=== PATIENT | male | born 1965 | race Caucasian/White ===

== ENCOUNTER 2017-02-09 14:19 | Observation (INO) | payer OTHER ==
[2017-02-09] MEDS ORDERED: ASPIRIN 81 MG CHEW PO STA (14:39)
--- NOTE | 2017-02-09 14:47 | ED ---
General Adult HPI - General Source: patient, RN notes reviewed Mode of arrival: wheelchair Limitations: no limitations <Edson Coelho - Last Filed: 02/09/17 17:06> <Ady Boland - Last Filed: 02/09/17 19:56> - General Chief complaint: Arrhythmia/Palpitations Stated complaint: CHest Pain Time Seen by Provider: 02/09/17 14:31 - History of Present Illness Initial comments: This a 51-year-old male presents emergency Department with chief complaint of chest pain. Patient states child has been swelling. Patient states that seems to wax and wane but not dissipating. Patient states he does not feel right. Patient states he also feels like his heart is pounding. Patient states that he has no known cardiac disease. Patient does not see a primary care physician a regular basis. Patient states that he does not have a known history of of hyperlipidemia, hypertension, diabetes. Patient's father had 3 MIs. Patient states he also is a heavy smoker and drinker. Patient denies any shortness of breath this time he did have some diaphoresis. Denies any headache or dizziness. Patient states he took Aleve earlier this morning he has not taken any aspirin. (Edson Coelho) - Related Data Home Medications Medication Instructions Recorded Confirmed Kirk Men Plus 1 tab PO DAILY 02/09/17 02/09/17 Allergies Allergy/AdvReac Type Severity Reaction Status Date / Time No Known Allergies Allergy Verified 02/09/17 14:43 Review of Systems ROS Other: All systems not noted in ROS Statement are negative. <Edson Coelho - Last Filed: 02/09/17 17:06> ROS Other: All systems not noted in ROS Statement are negative. <Ady Boland - Last Filed: 02/09/17 19:56> ROS Statement: Those systems with pertinent positive or pertinent negative responses have been documented in the HPI. Past Medical History Past Medical History: No Reported History History of Any Multi-Drug Resistant Organisms: None Reported Past Surgical History: Orthopedic Surgery, Tonsillectomy Past Psychological History: No Psychological Hx Reported Smoking Status: Current every day smoker Past Alcohol Use History: Daily Past Drug Use History: None Reported <Edson Coelho - Last Filed: 02/09/17 17:06> General Exam Limitations: no limitations General appearance: alert, in no apparent distress Head exam: Present: atraumatic, normocephalic, normal inspection Eye exam: Present: normal appearance, PERRL, EOMI. Absent: scleral icterus, conjunctival injection, periorbital swelling Neck exam: Present: normal inspection, full ROM. Absent: tenderness, meningismus, lymphadenopathy Respiratory exam: Present: normal lung sounds bilaterally. Absent: respiratory distress, wheezes, rales, rhonchi, stridor Cardiovascular Exam: Present: regular rate, normal rhythm, normal heart sounds. Absent: systolic murmur, diastolic murmur, rubs, gallop, clicks GI/Abdominal exam: Present: soft, normal bowel sounds. Absent: distended, tenderness, guarding, rebound, rigid <Edson Coelho - Last Filed: 02/09/17 17:06> EKG Findings - EKG Comments: EKG Findings:: EKG performed at 14:30 normal sinus rhythm with incomplete right miko block rate of 84. CT interval 140 QRS duration 116 QT/QTC 380/449 <Edson Coelho - Last Filed: 02/09/17 17:06> Medical Decision Making - Lab Data Result diagrams: 02/09/17 14:50 02/09/17 14:50 <Edson Coelho - Last Filed: 02/09/17 17:06> - Lab Data Result diagrams: 02/09/17 14:50 02/09/17 14:50 <Ady Boland - Last Filed: 02/09/17 19:56> - Medical Decision Making This is a 51-year-old came in for chest pain. He was admitted to Dr. Santana on heparin. The patient reported that he's been noticing some rectal bleeding for the last 3 days. He does have a history of hemorrhoids. I did a rectal exam at bedside and did not notice any dark or bloody stool. Guaiac card was sent down to lab. At this time I felt okay to continue with heparin. (Ady Boland) - Lab Data Lab Results 02/09/17 02/09/17 02/09/17 Range/Units 14:50 14:50 14:50 WBC 3.3 L (3.8-10.6) k/uL RBC 4.68 (4.30-5.90) m/uL Hgb 15.2 (13.0-17.5) gm/dL Hct 44.4 (39.0-53.0) % MCV 94.7 (80.0-100.0) fL MCH 32.5 (25.0-35.0) pg MCHC 34.4 (31.0-37.0) g/dL RDW 14.7 (11.5-15.5) % Plt Count 235 (150-450) k/uL Neutrophils % 63 % Lymphocytes % 23 % Monocytes % 9 % Eosinophils % 1 % Basophils % 2 % Neutrophils # 2.1 (1.3-7.7) k/uL Lymphocytes # 0.7 L (1.0-4.8) k/uL Monocytes # 0.3 (0-1.0) k/uL Eosinophils # 0.0 (0-0.7) k/uL Basophils # 0.1 (0-0.2) k/uL PT (9.0-12.0) sec INR (<1.1) APTT (22.0-30.0) sec Sodium 139 (137-145) mmol/L Potassium 4.4 (3.5-5.1) mmol/L Chloride 101 (98-107) mmol/L Carbon Dioxide 30 (22-30) mmol/L Anion Gap 8 mmol/L BUN 13 (9-20) mg/dL Creatinine 0.93 (0.66-1.25) mg/dL Est GFR (MDRD) Af Amer >60 (>60 ml/min/1.73 sqM) Est GFR (MDRD) Non-Af >60 (>60 ml/min/1.73 sqM) Glucose 129 H (74-99) mg/dL Calcium 9.5 (8.4-10.2) mg/dL Magnesium 1.8 (1.6-2.3) mg/dL Total Bilirubin 0.6 (0.2-1.3) mg/dL AST 35 (17-59) U/L ALT 30 (21-72) U/L Alkaline Phosphatase 56 (38-126) U/L Total Creatine Kinase 145 (55-170) U/L CK-MB (CK-2) 3.2 H* (0.0-2.4) ng/mL CK-MB (CK-2) Rel Index 2.2 Troponin I <0.012 (0.000-0.034) ng/mL Total Protein 7.1 (6.3-8.2) g/dL Albumin 4.4 (3.5-5.0) g/dL Lipase 259 (23-300) U/L 02/09/17 Range/Units 14:50 WBC (3.8-10.6) k/uL RBC (4.30-5.90) m/uL Hgb (13.0-17.5) gm/dL Hct (39.0-53.0) % MCV (80.0-100.0) fL MCH (25.0-35.0) pg MCHC (31.0-37.0) g/dL RDW (11.5-15.5) % Plt Count (150-450) k/uL Neutrophils % % Lymphocytes % % Monocytes % % Eosinophils % % Basophils % % Neutrophils # (1.3-7.7) k/uL Lymphocytes # (1.0-4.8) k/uL Monocytes # (0-1.0) k/uL Eosinophils # (0-0.7) k/uL Basophils # (0-0.2) k/uL PT 9.6 (9.0-12.0) sec INR 0.9 (<1.1) APTT 25.8 (22.0-30.0) sec Sodium (137-145) mmol/L Potassium (3.5-5.1) mmol/L Chloride (98-107) mmol/L Carbon Dioxide (22-30) mmol/L Anion Gap mmol/L BUN (9-20) mg/dL Creatinine (0.66-1.25) mg/dL Est GFR (MDRD) Af Amer (>60 ml/min/1.73 sqM) Est GFR (MDRD) Non-Af (>60 ml/min/1.73 sqM) Glucose (74-99) mg/dL Calcium (8.4-10.2) mg/dL Magnesium (1.6-2.3) mg/dL Total Bilirubin (0.2-1.3) mg/dL AST (17-59) U/L ALT (21-72) U/L Alkaline Phosphatase (38-126) U/L Total Creatine Kinase (55-170) U/L CK-MB (CK-2) (0.0-2.4) ng/mL CK-MB (CK-2) Rel Index Troponin I (0.000-0.034) ng/mL Total Protein (6.3-8.2) g/dL Albumin (3.5-5.0) g/dL Lipase (23-300) U/L Disposition <Edson Coelho - Last Filed: 02/09/17 17:06> <Ady Boland - Last Filed: 02/09/17 19:56> Clinical Impression: Unstable angina Disposition: ADMITTED IP TO THIS HOSP Condition: Stable
[2017-02-09 15:11] LABS: Basophils # (A) 0.1 k/uL (0-0.2); Basophils % (A) 2 %; CH 33.4; CHCM 35.4; Eosinophils % (A) 1 %; HCT 44.4 % (39.0-53.0); HDW 2.47; HGB 15.2 gm/dL (13.0-17.5); Luc # (Auto) 0.07; Luc % (Auto) 2; Lymphocytes # (A) 0.7 k/uL (1.0-4.8); Lymphocytes % (A) 23 %; MCH 32.5 pg (25.0-35.0); MCHC 34.4 g/dL (31.0-37.0); MCV 94.7 fL (80.0-100.0); Mean Platelet Volume 6.6; Monocytes # (A) 0.3 k/uL (0-1.0); Monocytes % (A) 9 %; Neutrophils # (A) 2.1 k/uL (1.3-7.7); Neutrophils % (A) 63 %; RBC 4.68 m/uL (4.30-5.90); RDW 14.7 % (11.5-15.5); WBC 3.3 k/uL (3.8-10.6)
--- NOTE | 2017-02-09 15:17 | XR ---
EXAMINATION TYPE: XR chest 2V DATE OF EXAM: 02/09/2017 3:02 PM COMPARISON: NONE HISTORY: Chest pain TECHNIQUE: Frontal and lateral views of the chest are obtained on a total of 3 images. FINDINGS: There is no focal air space opacity, pleural effusion, or pneumothorax seen. The cardiac silhouette size is small. There are prominent lung volumes which may be indicative of COPD. There are overlying cardiac leads. The osseous structures are intact, degenerative disc changes are present i n the visualized spine, there is a spinal curvature. IMPRESSION: No acute cardiopulmonary process.
[2017-02-09 15:19] LABS: Glucose 129 mg/dL (74-99); Total Protein 7.1 g/dL (6.3-8.2)
[2017-02-09 15:20] LABS: ALT 30 U/L (21-72); AST 35 U/L (17-59); Alkaline Phosphatase 56 U/L (38-126); Anion Gap 8 mmol/L; Blood Urea Nitrogen 13 mg/dL (9-20); Calcium 9.5 mg/dL (8.4-10.2); Carbon Dioxide 30 mmol/L (22-30); Chloride 101 mmol/L (98-107); INR 0.9 (<1.1); Magnesium 1.8 mg/dL (1.6-2.3); Non-African American GFR(MDRD) >60 (>60 ml/min/1.73 sqM); Partial Thromboplastin Time 25.8 sec (22.0-30.0); Potassium 4.4 mmol/L (3.5-5.1); Prothrombin Time 9.6 sec (9.0-12.0); Sodium 139 mmol/L (137-145); Total Bilirubin 0.6 mg/dL (0.2-1.3)
[2017-02-09 15:50] LABS: Creatine Kinase 145 U/L (55-170)
[2017-02-09 16:04] LABS: Troponin I <0.012 ng/mL (0.000-0.034)
[2017-02-09 16:06] LABS: Creatine Kinase MB 3.2 ng/mL (0.0-2.4)
[2017-02-09] MEDS ORDERED: NITROGLYCERIN SL TABS 0.4 MG TAB SUBLINGUAL PRN (17:07)
[2017-02-09] MEDS ORDERED: HEPARIN SODIUM,PORCINE 5,000 UNIT/ML 1 ML VIAL IV ONE (17:07)
[2017-02-09] MEDS ORDERED: HEPARIN SODIUM,PORCINE/D5W PMX 25,000 UNIT in DEXTROSE/WATER 1 500ML.BAG IV SCH (17:15)
[2017-02-09] MEDS ORDERED: HYDROmorphone 1 MG/ML 1 ML SYRINGE IVP PRN (18:37)
[2017-02-09] MEDS ORDERED: ALPRAZolam 0.25 MG TAB PO PRN (18:37)
[2017-02-09] MEDS ORDERED: HYDROcodone/APAP 5-325MG 1 EACH TAB PO PRN (18:37)
[2017-02-09] MEDS ORDERED: TEMAZEPAM 15 MG CAP PO PRN (18:37)
[2017-02-09] MEDS ORDERED: ACETAMINOPHEN TAB 500 MG TAB PO PRN (18:37)
[2017-02-09] MEDS ORDERED: NICOTINE 14MG/24HR PATCH TRANSDERM STA (18:44)
[2017-02-09 19:16] LABS: Appearance,Urine Clear (Clear); Bilirubin,Urine Negative (Negative); Glucose,Urine (UA) Negative (Negative); Ketones,Urine Negative (Negative); Leukocyte Esterase,Urine Negative (Negative); Nitrite,Urine Negative (Negative); Protein,Urine Negative (Negative); Specific Gravity,Urine 1.011 (1.001-1.035); UA Billing (MACRO vs. MICRO) CHEM; Urobilinogen,Urine <2.0 mg/dL (<2.0)
[2017-02-09 21:37] LABS: Creatine Kinase 117 U/L (55-170)
[2017-02-09 21:51] LABS: Creatine Kinase MB 2.4 ng/mL (0.0-2.4); Troponin I <0.012 ng/mL (0.000-0.034)
--- NOTE | 2017-02-09 23:46 | HP ---
DATE OF ADMISSION: 02/09/2017 CHIEF COMPLAINT: Chest pain. HISTORY OF PRESENT ILLNESS: This 51-year-old gentleman with a past medical history of no significant medical issues except orthopedic surgery and tonsillectomy, not being followed by a primary physician, is a heavy smoker. The patient presented to [facility] with complains of chest pain. The chest pain was felt in the anterior part of the chest which was radiating to the back also, according to him. It was waxing and waning. The heart was felt to be pounding also with some palpitations. Because of multiple symptomatology, the patient came to [facility] and was admitted for further evaluation and treatment. EKG showed incomplete right bundle block pattern. WBC was 3.3. CK-MB was 3.2. He was admitted for further evaluation and treatment. There is no history of any fever, rigor, or chills. No history of any headache, loss of consciousness, seizures. PAST MEDICAL HISTORY: No significant cardiovascular illness. History of orthopedic surgery and tonsillectomy. HOME MEDICATIONS: Kirk Men Plus. ALLERGIES: NONE. FAMILY HISTORY: No history of heart disease or strokes in the family. SOCIAL HISTORY: Smoking currently on an ongoing basis, one pack of cigarettes per day. No history of alcohol intake. REVIEW OF SYSTEMS: ENT: No diminishing hearing. No diminished vision. CARDIOVASCULAR: As mentioned earlier. RESPIRATORY SYSTEM: No cough, hemoptysis. GI: No nausea. : No dysuria, retention. NERVOUS SYSTEM: No numbness, weakness. ALLERGY/IMMUNOLOGY: No asthma, hayfever. MUSCULOSKELETAL: As mentioned earlier. HEMATOLOGY/ONCOLOGY: No history of anemia. ENDOCRINE: No history of diabetes, hypothyroidism. CONSTITUTIONAL: As mentioned earlier. DERMATOLOGY: Negative. RHEUMATOLOGY: Negative. PSYCHIATRY: As mentioned earlier. PHYSICAL EXAMINATION: Patient is alert and oriented x3. Pulse is 74, blood pressure 129/90, respiration 18, temperature 98.1, pulse ox 99% on 2 L. HEENT: Conjunctivae normal. Oral mucosa moist. NECK: No jugular venous distention. No carotid bruit. No lymph node enlargement. CARDIOVASCULAR SYSTEM: S1, S2 muffled. No S3. No S4. RESPIRATORY: Breath sounds diminished at the bases. No rhonchi. No crackles. ABDOMEN: Soft, nontender. No mass palpable. LEGS: No edema. No swelling. NERVOUS SYSTEM: Higher functions as mentioned earlier. Moves all 4 limbs. No focal motor or sensory deficit. LYMPHATICS: No lymph node palpable in neck, axillae or groin. SKIN: No ulcer, rash, bleeding. JOINTS: No active deforming arthropathy. LABS: WBC 3.6, hemoglobin 15.2. Glucose 129. CK-MB is 3.2. Troponins are negative. ASSESSMENT: 1. Chest pain, possible unstable angina. 2. Incomplete right bundle branch block on EKG. 3. Mild leukopenia. 4. Increased random blood sugar. 5. Continued ongoing nicotine dependence. 6. History of degenerative joint disease. 7. History of tonsillectomy. RECOMMENDATIONS AND DISCUSSION: In this 51-year-old gentleman who presented with multiple complex medical issues, we will monitor the patient closely, continue the current medication, continue with symptomatic treatment. Unstable angina protocol. Closely follow with Cardiology. Rule out myocardial infarction. Symptomatic treatment also will be provided. N.p.o. past midnight. Possible stress test. Guarded prognosis because of multiple complex medical issues. Discussed with the patient, who understands and agrees. Further recommendations to follow. I also recommend that the patient follow up with a primary physician closely in the outpatient setting. Patient understands and agrees.
[2017-02-10] MEDS ORDERED: HEPARIN SODIUM,PORCINE 5,000 UNIT/ML 1 ML VIAL IV PRN (01:25)
[2017-02-10 03:13] LABS: Anion Gap 9 mmol/L; Blood Urea Nitrogen 20 mg/dL (9-20); Calcium 8.6 mg/dL (8.4-10.2); Carbon Dioxide 25 mmol/L (22-30); Chloride 104 mmol/L (98-107); Cholesterol 151 mg/dL (<200); Glucose 86 mg/dL (74-99); HDL Cholesterol 74 mg/dL (40-60); Non-African American GFR(MDRD) >60 (>60 ml/min/1.73 sqM); Potassium 3.6 mmol/L (3.5-5.1); Sodium 138 mmol/L (137-145); Triglycerides 73 mg/dL (<150)
[2017-02-10 03:15] LABS: Creatine Kinase 102 U/L (55-170)
[2017-02-10 03:28] LABS: Creatine Kinase MB 2.1 ng/mL (0.0-2.4); Troponin I <0.012 ng/mL (0.000-0.034)
[2017-02-10 03:33] LABS: Basophils # (A) 0.1 k/uL (0-0.2); Basophils % (A) 2 %; CHCM 34.2; Eosinophils # (A) 0.1 k/uL (0-0.7); Eosinophils % (A) 3 %; HCT 40.2 % (39.0-53.0); HDW 2.45; HGB 13.5 gm/dL (13.0-17.5); Luc # (Auto) 0.09; Luc % (Auto) 2; Lymphocytes # (A) 1.6 k/uL (1.0-4.8); Lymphocytes % (A) 35 %; MCH 32.7 pg (25.0-35.0); MCHC 33.7 g/dL (31.0-37.0); MCV 97.2 fL (80.0-100.0); Monocytes # (A) 0.3 k/uL (0-1.0); Monocytes % (A) 6 %; Neutrophils # (A) 2.4 k/uL (1.3-7.7); Neutrophils % (A) 52 %; RBC 4.13 m/uL (4.30-5.90); RDW 14.5 % (11.5-15.5); WBC 4.6 k/uL (3.8-10.6); WBC (Perox) 4.07
[2017-02-10] MEDS ORDERED: PANTOPRAZOLE 40 MG TABLET PO SCH (07:30)
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
[2017-02-10] MEDS ORDERED: NICOTINE 14MG/24HR PATCH TRANSDERM SCH (09:00)
[2017-02-10] MEDS ORDERED: ASPIRIN 325 MG TAB PO SCH (09:00)
[2017-02-10] MEDS ORDERED: MULTIVITAMINS, THERA 1 EACH TAB PO SCH (12:00)
[2017-02-10 12:54] VITALS: BP 123/74; PULSE 67; RESP 18; TEMP 97.7
--- NOTE | 2017-02-10 13:51 | ECHOS ---
DATE OF SERVICE: 02/10/2017 AGE: 51Y SEX: M HT: 5'10" WT: 150 lbs. Protocol Ankit: X Others: Stress Echo Stage: 4 Dur. of Exercise: 11:00 *Heart Rate Blood Pressure *Rest: 74 Rest: 153/70 * *Max. Achieved: 150 Maximum BP: 177/77 85% PMHR: 142 100% PMHR: 167 *METS: 11.3 INDICATIONS: Chest pain. MEDICATIONS: - Baseline EKG revealed normal sinus rhythm without significant ST-T changes. Patient walked for 11 minutes on standard Ankit protocol, achieved a maximum heart rate of 150 beats per minute, well above 85% of predicted maximal. He developed fatigue and shortness of breath, but did not have any angina or arrhythmia and he had isolated PVCs that were noted to begin with, and these PVCs disappeared as he exercised and again in the recovery period, he again had very rare isolated PVCs. Patient's peak systolic blood pressure was 177/77. By EKG criteria, this is a negative stress test with excellent exercise capacity. Ventricular ectopy improved with exercise and appeared in recovery. These were all isolated premature ventricular contractions without symptoms. Baseline echo images reveal normal wall motion and wall thickening of all segments. At peak exercise, there was good augmentation of left ventricular wall motion and wall thickening of all segments suggesting that there is no evidence of stress-induced ischemia on this study. FINAL IMPRESSION: 1. Excellent exercise capacity with a negative stress by EKG criteria with improvement in premature ventricular contractions as patient exercised. 2. Normal stress echocardiogram.
--- NOTE | 2017-02-11 16:34 | DS ---
DATE OF ADMISSION: 02/09/2017 DATE OF DISCHARGE: 02/10/2017 FINAL DIAGNOSES: 1. Chest pain; myocardial infarction ruled out with stress echo negative for ischemia; possibly musculoskeletal chest pain. 2. Incomplete right bundle block on EKG. 3. Mild leukopenia. 4. Increased random blood sugar. 5. Continued ongoing nicotine dependence. 6. History of degenerative joint disease. 7. History of tonsillectomy. DISCHARGE DISPOSITION: Patient will be discharged in stable condition with guarded prognosis. HISTORY OF PRESENT ILLNESS: This 51-year-old gentleman was admitted with chest pain. Myocardial infarction was ruled out. Cardiology performed a stress echo which was normal. Otherwise patient was monitored closely. The lipid panel was normal. On exam, vitals are stable. CARDIOVASCULAR SYSTEM: S1, S2 muffled. ABDOMEN: Soft. NERVOUS SYSTEM: No focal deficit. Smoking cessation was recommended. DISCHARGE ADVICE AND MEDICATIONS: 1. Diet is cardiac. 2. Activity limited until followup. 3. Follow up with Dr. Liang in 2 to 3 days. 4. Habitrol 14 daily. 5. Kirk Men as before. 6. Follow up with Cardiology as recommended.
== END 2017-02-10 15:09 | disposition home or self-care (01) ==
LOC: EC 14:19 → 3OBS 17:04
PROVIDERS: ADMIT Hospitalist; ATTEND Hospitalist
DX: R07.89 Other chest pain (principal); I45.10 Unspecified right bundle-branch block; R73.9 Hyperglycemia, unspecified; D72.819 Decreased white blood cell count, unspecified; M19.90 Unspecified osteoarthritis, unspecified site; Z82.49 Family history of ischemic heart disease and other diseases of the circulatory system; K64.9 Unspecified hemorrhoids; F17.210 Nicotine dependence, cigarettes, uncomplicated; Z83.3 Family history of diabetes mellitus; Z82.3 Family history of stroke
CPT/HCPCS: 96366 ×2; 96376; 96365; 99285; 36415; 93005; 93017; 93350; 80061; 80053; 80048; 82550 ×2; 82553 ×2; 83690; 83735; 84484 ×2; 85025 ×2; 85610; 85730 ×2; 82272; 81003; 80306; 71020; G0378 ×2; S4990; J1644 ×3

== ENCOUNTER 2017-10-26 06:35 | Day surgery (SDC) | payer OTHER ==
[2017-10-22 10:48] VITALS: BMI 22.1
[~2017-10-26 06:35] MED LIST: LACTATED RINGERS 1,000 ML IV SCH; LIDOCAINE 1% 20 ML VIAL (10MG/ML) FOR IV START INTRADERMA PRN
[2017-10-26] MEDS ORDERED: LACTATED RINGERS 1,000 ML IV ONE (07:09)
[2017-10-26 07:17] VITALS: TEMP 98.1
[2017-10-26] MEDS ORDERED: LIDOCAINE 1% INJ 10MG/ML (20 ML MDV) ONE (07:46)
[2017-10-26] MEDS ORDERED: PROPOFOL 10 MG/ML 20 ML VIAL IV ONE (07:46)
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
--- NOTE | 2017-10-26 08:11 | P.OP ---
Date of Procedure: 10/26/17 Preoperative Diagnosis: GI bleed Postoperative Diagnosis: Internal and external hemorrhoids Diverticulosis Procedure(s) Performed: Colonoscopy Anesthesia: MAC Surgeon: Benjamin Steele Pathology: none sent Condition: stable Disposition: PACU Description of Procedure: A shunt placed on the endoscopy table in the lateral position. He received IV sedation. Digital rectal exam was performed which revealed internal and external hemorrhoids. Prostate was symmetric without nodules. The flexible colonoscope was then placed patient anus and passed throughout the entire colon. The ileocecal valve was visualized. Cecum, ascending and transverse colon appeared normal. The descending sigmoid colon had moderate diverticular changes. Scope was then brought back the rectum and this appeared normal. There was no blood seen colon. The scope was withdrawn for patient.
[2017-10-26 08:53] VITALS: BP 149/93; PULSE 65; RESP 20
== END 2017-10-26 08:56 | disposition home or self-care (01) ==
LOC: ORWHC2ENDO 06:35
PROVIDERS: ATTEND Surgery
DX: K64.8 Other hemorrhoids (principal); K64.4 Residual hemorrhoidal skin tags; K57.30 Diverticulosis of large intestine without perforation or abscess without bleeding; F17.210 Nicotine dependence, cigarettes, uncomplicated
CPT/HCPCS: 45378; J2001; J2704

== ENCOUNTER 2020-07-29 12:24 | Emergency (ER) | payer OTHER ==
[2020-07-29 12:39] VITALS: TEMP 98.7
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
--- NOTE | 2020-07-29 13:10 | XR ---
EXAMINATION TYPE: XR chest 2V DATE OF EXAM: 07/29/2020 COMPARISON: 02/09/2017 HISTORY: 55-year-old male with chest pain TECHNIQUE: PA and lateral views FINDINGS: The cardiomediastinal silhouette, aorta, and pulmonary vasculature are within normal limits. Mild hyp erinflation. Lungs and pleural spaces are clear. IMPRESSION: Mild hyperinflation may relate to depth of inspiration or underlying emphysema. Otherwise, no acute c ardiopulmonary process.
[2020-07-29 13:37] LABS: Basophils # (A) 0.1 k/uL (0-0.2); Basophils % (A) 1 %; Eosinophils # (A) 0.1 k/uL (0-0.7); Eosinophils % (A) 2 %; HCT 44.5 % (39.0-53.0); HGB 14.8 gm/dL (13.0-17.5); Lymphocytes # (A) 0.8 k/uL (1.0-4.8); Lymphocytes % (A) 19 %; MCHC 33.1 g/dL (31.0-37.0); MCV 99.7 fL (80.0-100.0); Monocytes # (A) 0.3 k/uL (0-1.0); Monocytes % (A) 6 %; Neutrophils # (A) 2.9 k/uL (1.3-7.7); Neutrophils % (A) 70 %; Platelet Count 214 k/uL (150-450); RBC 4.47 m/uL (4.30-5.90); RDW 13.6 % (11.5-15.5); WBC 4.1 k/uL (3.8-10.6)
[2020-07-29 13:52] LABS: INR 0.9 (<1.2); Partial Thromboplastin Time 26.3 sec (22.0-30.0); Prothrombin Time 9.5 sec (9.0-12.0)
[2020-07-29 14:08] LABS: ALT 14 U/L (4-49); AST 27 U/L (17-59); African American GFR (CKD) >90 (>60 ml/min/1.73 sqM); Albumin 4.3 g/dL (3.5-5.0); Alkaline Phosphatase 56 U/L (38-126); Anion Gap 7 mmol/L; Blood Urea Nitrogen 11 mg/dL (9-20); Calcium 9.5 mg/dL (8.4-10.2); Carbon Dioxide 28 mmol/L (22-30); Chloride 101 mmol/L (98-107); Glucose 115 mg/dL (74-99); Magnesium 1.6 mg/dL (1.6-2.3); Non-African American GFR(CKD) >90 (>60 ml/min/1.73 sqM); Sodium 136 mmol/L (137-145); Total Bilirubin 0.6 mg/dL (0.2-1.3); Total Protein 6.8 g/dL (6.3-8.2)
--- NOTE | 2020-07-29 15:03 | CT ---
EXAMINATION TYPE: CT angio chest DATE OF EXAM: 07/29/2020 COMPARISON: Chest x-ray same date HISTORY: chest pain CT DLP: 299.8 mGycm Automated exposure control for dose reduction was used. CONTRAST: CTA scan of the thorax is performed with IV Contrast, patient injected with 100 mL of Isovue 370, pul monary embolism protocol. MIP images are created and reviewed. 3D reconstructed images are created on an independent workstation and reviewed. FINDINGS: LUNGS: The lungs are grossly clear, there is no concerning parenchymal mass or nodule identified. Em physematous changes are scattered within the lungs. Some basilar dependent atelectatic changes are pr esent. There is no pleural effusion or pneumothorax seen. The tracheobronchial tree is patent. AORTA: No additional significant abnormality is seen. MEDIASTINUM: There is satisfactory enhancement of the pulmonary artery and its branches, there is no CT evidence for pulmonary embolism. There are no greater than 1 cm hilar or mediastinal lymph nodes. No pericardial effusion is seen. OTHER: There is a spinal curvature, degenerative disc change. IMPRESSION: NO EVIDENT PULMONARY EMBOLISM. MILD TO MODERATE EMPHYSEMA.
[2020-07-29] MEDS ORDERED: LABETALOL 5 MG/ML VIAL MDV IVP STA (15:33)
[2020-07-29] MEDS ORDERED: lisinopriL 10 MG TAB PO STA (15:33)
[2020-07-29] MEDS ORDERED: SODIUM CHLORIDE 0.9% 1,000 ML IV STA (15:33)
[2020-07-29 16:27] VITALS: BP 135/92; PULSE 67; RESP 14
== END 2020-07-29 16:35 | disposition home or self-care (01) ==
LOC: EC 12:24
DX: I10 Essential (primary) hypertension (principal); R07.9 Chest pain, unspecified; F17.200 Nicotine dependence, unspecified, uncomplicated; Z82.49 Family history of ischemic heart disease and other diseases of the circulatory system
CPT/HCPCS: 36415; 93005; 83880; 80053; 83690; 83735; 84484; 85025; 85610; 85730; 71046; 71275; 99285; 96374; 96361; Q9967

== ENCOUNTER → 2020-10-11 | Outpatient (CLI) | payer OTHER ==
--- NOTE | 2020-10-11 11:39 | EST ---
EXERCISE STRESS AGE: 55 SEX: Male HT: 5'8" WT: 145 PROTOCOL: Cardiolite Ankit STAGE: III DURATION OF EXERCISE: 9 minutes HEART RATE REST: 123 BLOOD PRESSURE REST: 144/105 MAXIMUM HEART RATE ACHIEVED: 171 MAXIMUM BLOOD PRESSURE: 165/90 85% MPHR: 139 100% MPHR: 163 METS: 10 INDICATIONS: Chest pain. CLINICAL INFORMATION: Baseline EKG shows sinus rhythm and nonspecific ST-T wave changes. Patient exercised on Ankit protocol for 9 minutes achieving 10 METs, 100% of predicted maximal heart rate without chest pain or diagnostic ST-segment depression. CONCLUSIONS: 1. Excellent exercise tolerance. 2. Negative stress test by EKG criteria. 3. Cardiolite portion of the stress test will be reported separately. MMODL / IJN: [id number] /
--- NOTE | 2020-10-11 15:02 | NM ---
EXAMINATION TYPE: NM stress cardiolite complete DATE OF EXAM: 10/11/2020 COMPARISON: NONE HISTORY: Tachycardia TECHNIQUE: After the intravenous administration of 9.8 mCi Tc 99m Sestamibi - Rest images obtained 4 5 minutes post injection. The patient exercised using a MULU protocol and 1 minute prior to peak e xercise was injected with 24 mCi Tc 99m Sestamibi - Stress images obtained 10 minutes post injection. FINDINGS: No fixed or reversible perfusion defects are evident. There is some cardiac thinning presen t. Polar maps identified cardiac thinning. Gated wall motion is reviewed. There is some dyskinesia of the distal anterior wall and cardiac apex and some global hypokinesia. Ejection fraction of 54% is n ormal. IMPRESSION: 1. Hypokinesia and wall dyskinesia. 2. Ejection fraction remains normal at 54%. 3. Cardiac thinning of the cardiac apex
== END | disposition home or self-care (01) ==
LOC: RADNMMAIN 07:52
PROVIDERS: ATTEND Family Medicine
DX: I11.9 Hypertensive heart disease without heart failure (principal); G24.9 Dystonia, unspecified; R07.9 Chest pain, unspecified; R74.8 Abnormal levels of other serum enzymes; R00.0 Tachycardia, unspecified
CPT/HCPCS: 93017; 78452; A9500

== ENCOUNTER 2020-10-21 06:24 | Day surgery (SDC) | payer OTHER ==
[2020-10-17 11:40] VITALS: BMI 21.4
[~2020-10-21 06:24] MED LIST changes: +ALPRAZolam 0.25 MG TAB PO PRN; +ALPRAZolam 0.5 MG TAB PO PRN; +ASPIRIN 325 MG TAB PO STA; +ATORVASTATIN 80 MG TAB PO STA; +HEPARIN SODIUM,PORCINE 10,000 UNIT in SODIUM CHLORIDE 0.9% 1,000 ML IRRIGATION PRN; +HEPARIN SODIUM,PORCINE 2,500 UNIT in SODIUM CHLORIDE 0.9% 250 ML IRRIGATION PRN; -LACTATED RINGERS 1,000 ML IV SCH; -LIDOCAINE 1% 20 ML VIAL (10MG/ML) FOR IV START INTRADERMA PRN; +NITROGLYCERIN SL TABS 0.4 MG TAB SUBLINGUAL PRN; +SODIUM CHLORIDE 0.9% 1,000 ML in EMPTY BAG 1 BAG IV ONE
[2020-10-21] MEDS ORDERED: ASPIRIN 81 MG ONE (06:45)
[2020-10-21] MEDS ORDERED: SODIUM CHLORIDE 0.9% 1,000 ML IV ONE (06:55)
[2020-10-21 07:00] VITALS: RESP 16; TEMP 97.4
[2020-10-21 07:06] LABS: Basophils # (A) 0.1 k/uL (0-0.2); Basophils % (A) 2 %; Eosinophils # (A) 0.2 k/uL (0-0.7); Eosinophils % (A) 4 %; HCT 39.8 % (39.0-53.0); HGB 13.2 gm/dL (13.0-17.5); Lymphocytes # (A) 1.4 k/uL (1.0-4.8); Lymphocytes % (A) 27 %; MCH 32.1 pg (25.0-35.0); MCHC 33.3 g/dL (31.0-37.0); MCV 96.5 fL (80.0-100.0); Mean Platelet Volume 6.8; Monocytes # (A) 0.5 k/uL (0-1.0); Monocytes % (A) 9 %; Neutrophils # (A) 2.9 k/uL (1.3-7.7); Neutrophils % (A) 56 %; Platelet Count 301 k/uL (150-450); RBC 4.12 m/uL (4.30-5.90); RDW 14.8 % (11.5-15.5); WBC 5.2 k/uL (3.8-10.6)
[2020-10-21] MEDS ORDERED: VERAPAMIL 2.5 MG/ML 2 ML AMP ONE (07:22)
[2020-10-21] MEDS ORDERED: LIDOCAINE 1% INJ 10MG/ML (20 ML MDV) ONE (07:22)
[2020-10-21] MEDS ORDERED: MIDAZOLAM 2 MG/2 ML VIAL IV ONE (07:48)
[2020-10-21] MEDS ORDERED: LIDOCAINE 1% INJ 10MG/ML (20 ML MDV) SQ ONE (07:50)
[2020-10-21] MEDS ORDERED: HEPARIN SODIUM 1,000 UN/ML (10ML VL) ONE (07:51)
[2020-10-21] MEDS: VERAPAMIL SYRINGE (5 MG/10 ML) INTRAARTER ONE ×2 (07:52→08:01)
[2020-10-21] MEDS ORDERED: HEPARIN SODIUM 1,000 UN/ML (10ML VL) IV ONE (07:54)
[2020-10-21] MEDS ORDERED: IOPAMIDOL-370 100ML BTL INJ ONE (08:01)
[2020-10-21] MEDS ORDERED: SODIUM CHLORIDE 0.9% 1,000 ML IV SCH (08:10)
--- NOTE | 2020-10-21 09:02 | CC ---
CARDIAC CATHETERIZATION REPORT DATE OF SERVICE: 10/21/2020 PROCEDURE: Left heart catheterization and coronary angiography. PERFORMED BY: Dr. Belinda Benavides. Moderate conscious sedation time was 16 minutes. Patient was administered Versed. Oxygen saturation, hemodynamics and EKG were monitored closely. CLINICAL INFORMATION: Mr. Grant is a 55-year-old gentleman with a history of hypertension, recent abnormal stress test with mild global hypokinesia and anteroapical defect. He was advised cardiac catheterization after due discussion regarding risks, benefits, and options. PROCEDURE NOTE: Under local anesthesia and strict aseptic precautions, a 6-Cymraes introducer was placed in the right radial artery. Using a JL3.5 and JR4 catheters, I performed coronary angiography and the same right catheter was used to check LV pressures. LV gram was not performed. Sheath was taken out and TR band applied as per protocol with saturation of the fingers of the right hand of 93%. He was sent to the room in a stable condition. Results were discussed with the patient as well as his brother by phone. CARDIAC CATHETERIZATION FINDINGS: The left ventricular end-diastolic pressure was 6-7 mmHg. There was no gradient across aortic valve. CORONARY ANGIOGRAPHY FINDINGS: RIGHT CORONARY ARTERY: Technically a codominant vessel, gives off an acute marginal branches, conus branch, and distally gives off what seems to be a PDA. The PLV does not seem to come off from the right coronary artery. This is probably a codominant vessel. LEFT MAIN CORONARY ARTERY: Short patent vessel free of significant disease that bifurcates into LAD and circumflex. Left main itself is free of significant disease. LEFT ANTERIOR DESCENDING CORONARY ARTERY: Good caliber vessel gives off a good-sized septal and diagonal branch, very tortuous. There is a 40% mid lesion, runs all the way to the apex supplies a sizable amount of myocardium. No significant disease. LEFT POSTERIOR CIRCUMFLEX CORONARY ARTERY: Technically a codominant vessel, gives off a high first obtuse marginal, very tortuous has minor irregularities, no significant disease. Distally, the circumflex continues as a PLV branch has minor irregularities no significant disease. This is probably a codominant system. LEFT VENTRICULOGRAM: Left ventriculogram was not performed. FINAL IMPRESSION: This patient has a codominant system. Normal filling pressures. No gradient across aortic valve. RCA has minor irregularities gives off the PLV branch. Left main and circumflex are free of significant disease. Circumflex gives off the PLV branch. Mid LAD has about a 35% narrowing. Other than that, there are no other significant narrowings noted. LAD is a good large caliber large distribution system, very tortuous. RECOMMENDATIONS: Findings were discussed with the patient and also spoke to his brother. Continued medical therapy with risk factor modification is advised. He can be discharged today and I will see him on . He was advised to refrain from alcohol intake, which seems to be a contributing factor for his ejection fraction which is at the low end of normal on echocardiogram. MMODL / IJN: [id number] /
[2020-10-21 14:19] VITALS: BP 119/64; PULSE 54
== END 2020-10-21 14:25 | disposition home or self-care (01) ==
LOC: CATHCVL 06:24
PROVIDERS: ATTEND Internal Medicine Interventional Cardiology
DX: I25.110 Atherosclerotic heart disease of native coronary artery with unstable angina pectoris (principal); I77.1 Stricture of artery; R94.39 Abnormal result of other cardiovascular function study; R07.89 Other chest pain; R06.02 Shortness of breath; R93.1 Abnormal findings on diagnostic imaging of heart and coronary circulation; R94.5 Abnormal results of liver function studies; E78.2 Mixed hyperlipidemia; I10 Essential (primary) hypertension; F17.210 Nicotine dependence, cigarettes, uncomplicated; K21.9 Gastro-esophageal reflux disease without esophagitis; D72.819 Decreased white blood cell count, unspecified; I47.1 Supraventricular tachycardia; R63.6 Underweight; R64 Cachexia; Z68.21 Body mass index [BMI] 21.0-21.9, adult; Z79.899 Other long term (current) drug therapy; Z79.82 Long term (current) use of aspirin
CPT/HCPCS: 93458; 85025; C1769; C1894; J2250; J2001; J1644; Q9967

== ENCOUNTER 2021-05-18 10:13 | Emergency (ER) | payer OTHER ==
[2021-05-18 10:29] VITALS: RESP 18; TEMP 97.8
[2021-05-18] MEDS ORDERED: PROPARACAINE 0.5% OPHTH DROPS 15 ML BTL LEFT EYE STA (10:51)
[2021-05-18] MEDS ORDERED: FLUORESCEIN STRIPS 1 MG STRIP LEFT EYE ONE (10:51)
[2021-05-18] MEDS ORDERED: TOBRAMYCIN 0.3% OPHTH OINT 3.5 GM TUBE LEFT EYE STA (11:16)
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
[2021-05-18 11:50] VITALS: BP 120/78; PULSE 75
== END 2021-05-18 11:52 | disposition home or self-care (01) ==
LOC: EC 10:13
DX: S05.02XA Injury of conjunctiva and corneal abrasion without foreign body, left eye, initial encounter (principal); I10 Essential (primary) hypertension; E78.5 Hyperlipidemia, unspecified; F32.9 Major depressive disorder, single episode, unspecified; F17.200 Nicotine dependence, unspecified, uncomplicated; Z79.82 Long term (current) use of aspirin; X58.XXXA Exposure to other specified factors, initial encounter; Y99.0 Civilian activity done for income or pay
CPT/HCPCS: 65220; 99283